=== PATIENT | male | born 1955 | race Two or more races ===

== ENCOUNTER 2024-02-11 08:43 | Emergency (ER) | payer MEDICARE, BC ==
[~2024-02-11] VITALS: Ht 170.2 cm; Wt 68.0 kg
[2024-02-11 08:57] VITALS: TEMP 98.3
[2024-02-11] MEDS ORDERED: IBUP-1955 PO (10:11)
[2024-02-11 11:30] VITALS: BP 129/78; O2SAT 99
== END 2024-02-11 11:31 | disposition home or self-care (01) ==
LOC: ER 08:51
DX: S52.512A Displaced fracture of left radial styloid process, initial encounter for closed fracture (principal); S09.8XXA Other specified injuries of head, initial encounter; R51.9 Headache, unspecified; Z79.1 Long term (current) use of non-steroidal anti-inflammatories (NSAID); V89.2XXA Person injured in unspecified motor-vehicle accident, traffic, initial encounter; Y93.89 Activity, other specified; Y92.89 Other specified places as the place of occurrence of the external cause; Y99.8 Other external cause status
CPT/HCPCS: 70450-TC; 71045-TC; 72125-TC; 73110